=== PATIENT | male | born 1950 | race Caucasian/White ===

== ENCOUNTER → 2024-03-14 06:58 | Outpatient (CLI) | payer MEDICARE, OTHER, SELFPAY ==
--- NOTE | 2024-03-14 07:00 | DI.MRI.S_ITS ---
PROCEDURE: MR PELIS WO/W CON INDICATIONS: Elevated PSA TECHNIQUE: Coronal HASTE, axial T1 FSE with fat saturation, 3-plane nonbreath-hold T2 FSE. After the administration of contrast, dynamic axial, delayed axial and coronal VIBE or 2-D FLASH with fat saturation through the pelvis. Diffusion weighted imaging and ADC was performed. COMPARISON: None. FINDINGS: Image quality: Diffusion weighted and dynamic contrast enhanced images are diagnostic. Prostate: Gland size is 5.4 x 4.5 x 4.3 cm; ellipsoid gland volume is 54 mL. No significant foci of intrinsic T1 hyperintensity to suggest hemorrhage. Multiple BPH nodules. Lesion 1: Location: Right mid peripheral zone, on axial series 4, image 12 and sagittal series 6, image 8. Size: 1.3 x 0.9 cm. T2W signal: Heterogeneous DWI signal: Heterogeneous ADC signal: Heterogeneous Enhancement: No Extracapsular extension: No. No neurovascular involvement. PI-RADS score: 3 Lesion 2: Location: Right base transitional zone, on axial series 4, image 9 and sagittal series 6, image 9. Size: 0.8 x 0.8 cm. T2W signal: Hypointense. DWI signal: Heterogeneous. ADC signal: Mildly hypointense. Enhancement: Yes Extracapsular extension: No. No neurovascular involvement. PI-RADS score: 3 Genitourinary system: Bladder wall thickness is normal. Distal ureters are non distended. Bowel and peritoneum: No pathologic free pelvic fluid. Inferior colon and small bowel loops are normal in caliber. Diverticulosis. Nodes and vessels: No pelvic or inguinal adenopathy by size criteria. Iliac vessels are normal in caliber. Soft tissues: Fat containing left inguinal hernia. Bones: Marrow demonstrates normal overall signal, without lesions to suggest metastases. IMPRESSION: 1. Prostatomegaly with multiple BPH nodules. 2. No PI-RADS 4 or 5 observations. 3. No enlarged lymph nodes. Dictated by: Jean Maloney M.D. on 03/14/2024 at 9:21 Approved by: Jean Maloney M.D. on 03/14/2024 at 9:42
== END ==
PROVIDERS: PCP Family Medicine; Referring Provider Specialist; Visit Provider Specialist
DX: R97.20 Elevated prostate specific antigen [PSA] (principal); N40.1 Benign prostatic hyperplasia with lower urinary tract symptoms; R39.89 Other symptoms and signs involving the genitourinary system; N13.8 Other obstructive and reflux uropathy; K40.90 Unilateral inguinal hernia, without obstruction or gangrene, not specified as recurrent; K57.90 Diverticulosis of intestine, part unspecified, without perforation or abscess without bleeding
CPT/HCPCS: 36415; 72197; 84153; 84154; A9579